=== PATIENT | female | born 1945 | race Caucasian/White ===

== ENCOUNTER 2017-06-04 09:05 | Outpatient (CLI) | payer MEDICARE, BC | END 2017-06-04 11:05 | disposition home or self-care (01) | LOC: MERGE 09:05 → ECT 09:05 | DX: F33.2 Major depressive disorder, recurrent severe without psychotic features (principal); I10 Essential (primary) hypertension; F41.9 Anxiety disorder, unspecified; Z79.82 Long term (current) use of aspirin; Z88.8 Allergy status to other drugs, medicaments and biological substances ==